=== PATIENT | female | born 1970 | race Caucasian/White ===

== ENCOUNTER 2021-08-29 08:37 | Emergency (ER) | payer MEDICAID ==
--- NOTE | 2021-08-29 09:56 | ED Physician Documentation ---
PD HPI SKIN - Stated complaint Stated Complaint: HEAD PAIN - Chief complaint Chief Complaint: Neuro - History obtained from History obtained from: Patient - History of Present Illness Timing - onset: How many weeks ago (She states she has had several weeks up to 1 or 2 months of tenderness and itching and hair loss on the right parietal scalp. It is gotten more tender with some redness in the last several days. She states it hurts a lot.) Timing - duration: Weeks Timing - details: Gradual onset, Still present Location: Scalp (right posterior parietal.) Quality / character: Itchy (initially itchy with developed hair loss in the area. Also has surrounding broken hair apparently from scratching.), Painful, Swelling. No: Vesicular, Draining Associated symptoms: Headache (hurting in area of the rash/swelling.). No: Fever Recently seen: Not recently seen Review of Systems Constitutional: denies: Fever, Chills Nose: denies: Rhinorrhea / runny nose, Congestion Throat: denies: Sore throat Respiratory: denies: Cough Neurologic: denies: Focal weakness, Numbness, Confused, Altered mental status PD PAST MEDICAL HISTORY - Past Medical History Cardiovascular: None Respiratory: None Neuro: None Endocrine/Autoimmune: None Psych: Anxiety (general anxiety, homelessness, substance abuse. ) - Present Medications Home Medications: Ambulatory Orders Medication Instructions Recorded Confirmed Doxycycline Hyclate 100 mg PO BID 7 Days #14 cap 08/29/21 HYDROcod/ACETAM 5/325 [[place] 5/325] 1 ea PO BID PRN #12 tablet 08/29/21 Terbinafine HCl [Lamisil At] 1 applic TP BID 30 Days #30 gm 08/29/21 - Allergies Allergies/Adverse Reactions: Allergies Allergy/AdvReac Type Severity Reaction Status Date / Time codeine Allergy Hives Verified 08/29/21 08:56 Penicillins Allergy Hives Verified 08/29/21 08:56 - Social History Does the pt smoke?: Yes Smoking Status: Current every day smoker PD ED PE NORMAL - Vitals Vital signs reviewed: Yes - General General: Alert and oriented X 3, No acute distress, Well developed/nourished - HEENT HEENT: PERRL, EOMI, Ears normal, Pharynx benign - Neck Neck: Supple, no meningeal sign, No bony TTP, No adenopathy - Cardiac Cardiac: RRR, No murmur - Respiratory Respiratory: Clear bilaterally - Derm Derm: Normal color, Warm and dry, Other (Right posterior parietal scalp With rounded area of redness and swelling of the skin with raised edges but no obvious scaling or vesicles at this time. No fluctuance. Diameter is 3 cm. There is hair loss at the area. There is broken hair surrounding it consistent with scratching.) Results - Vitals Vitals: Vital Signs - 24 hr 08/29/21 08/29/21 08:57 11:00 Temperature 36.9 C Heart Rate 97 99 Respiratory 17 16 Rate Blood Pressure 180/102 H 180/79 H O2 Saturation 99 100 Oxygen O2 Source Room air PD MEDICAL DECISION MAKING - ED course Complexity details: considered differential (The area looks consistent with tinea capitis with concern for secondary local cellulitic infection. No suggestion of intracranial abnormality with her headache being of the scalp. Normal neuro otherwise.), d/w patient, d/w senior compensation consultant (Had social work talk with her about resources to help with the homelessness.) Departure - Departure Disposition: 01 Home, Self Care Clinical Impression: Infection of scalp, Fungal scalp infection Condition: Stable Record reviewed to determine appropriate education?: Yes Instructions: ED Infec Skin Fungal Tinea Follow-Up: Doni Reis MD [Primary Care Provider] - [facility] [Provider Group] Prescriptions: Doxycycline Hyclate 100 mg PO BID 7 Days #14 cap Terbinafine HCl [Lamisil At] 1 applic TP BID 30 Days #30 gm HYDROcod/ACETAM 5/325 [[place] 5/325] 1 ea PO BID PRN #12 tablet PRN Reason: Pain Comments: Your scalp has the appearance of likely a fungal infection of the skin. We can treat this with terbinafine antifungal cream a very light dab worked into the area twice daily for the next month or 2. It also looks like it has a secondary bacterial infection to it currently causing the increased redness and swelling. Doxycycline antibiotic twice daily for a week for that. Use Tylenol or ibuprofen if needed for mild pains. Add hydrocodone if needed for worse pain in the short-term. I transmitted your prescriptions to the [facility] pharmacy here in [place] which is right nearby and close to the bus stop too. See how much improvement you have over the next month or so. I would also suggest following up with a mowing machine operator for cyst another opinion on it and they could potentially do skin biopsies or such. I included their phone number for follow-up. Our hospital social worker met with you with information regarding resources in the area/shelters. Forms: Activity restrictions Discharge Date/Time: 08/29/21 11:28
[2021-08-29] MEDS ORDERED: DOXYCYCLINE 100 MG TABLET PO STA (09:58)
[2021-08-29] MEDS ORDERED: TERBINAFINE 250 MG TABLET PO STA (09:59)
[2021-08-29] MEDS ORDERED: HYDROcod/ACETAM 5/325 MG TABLET PO STA ×2 (10:03→11:21)
[2021-08-29 11:06] VITALS: BP 180/79
== END 2021-08-29 11:28 | disposition home or self-care (01) ==
LOC: ED 08:37
DX: B36.9 Superficial mycosis, unspecified (principal); F17.200 Nicotine dependence, unspecified, uncomplicated; Z59.00 Homelessness unspecified
CPT/HCPCS: 99282; 99283; A9270